=== PATIENT | male | born 1960 | race Caucasian/White ===

== ENCOUNTER 2016-12-11 23:22 | Emergency (ER) | payer OTHER ==
[2016-12-12 01:02] LABS: BASOPHILS 0.2 %; BASOPHILS ABSOLUTE 0.02 10/3/uL (0.0-0.16); EOSINOPHILS 0.3 %; EOSINOPHILS ABSOLUTE 0.03 10/3/uL (0.0-0.53); HEMATOCRIT 44.9 % (40.0-51.0); HEMOGLOBIN 15.9 g/dL (13.6-17.8); IMMATURE GRANULOCYTES 0.5 %; IMMATURE GRANULOCYTES ABSOLUTE 0.06 10/3/uL (0.0-0.11); LYMPHOCYTES 9.5 %; LYMPHOCYTES ABSOLUTE 1.13 10/3/uL (0.67-4.30); MEAN CORPUS HGB CONC 35.4 g/dL (32.0-36.0); MEAN CORPUSCULAR HEMOGLOB 31.7 pg (26.0-34.0); MEAN CORPUSCULAR VOLUME 89.6 fL (80-100); MEAN PLATELET VOLUME 9.9 fL (9.2-13.0); MONOCYTES 6.2 %; MONOCYTES ABSOLUTE 0.74 10/3/uL (0.21-1.20); NEUTROPHILS 83.3 %; NEUTROPHILS ABSOLUTE 9.87 10/3/uL (2.02-8.40); PLATELET COUNT 347 10/3/uL (150-400); RED CELL COUNT 5.01 10/6/uL (4.7-6.1); WHITE BLOOD CELLS 11.9 10/3/uL (4.5-10.5)
[2016-12-12 01:03] LABS: ER CBC TAT 0 Hrs 04 MinsNP; MANUAL DIFF NO %
[2016-12-12 01:20] LABS: A/G RATIO 1.1 (0.7-1.9); ALKALINE PHOSPHATASE 65 U/L (45-117); BUN (BLOOD UREA NITROGEN) 23 MG/DL (6-23); CALCIUM, SERUM 9.1 MG/DL (8.5-10.4); CHLORIDE, SERUM 104 MMOL/L (96-112); CO2 (CARBON DIOXIDE) 28 MMOL/L (24-34); CREATININE 1.27 MG/DL (0.70-1.30); GFR AFRICAN AMERICAN 73 ML/MIN (>=60); GFR NON AFRICAN AMERICAN 63 ML/MIN (>=60); GLOBULIN 3.5 G/DL (2.5-4.1); GLUCOSE, SERUM 122 MG/DL (60-99); POTASSIUM, SERUM 4.4 MMOL/L (3.5-5.3); SGOT(AST) 40 U/L (5-40); SGPT(ALT) 49 U/L (5-65); SODIUM, SERUM 137 MMOL/L (135-148); TOTAL BILIRUBIN 0.5 MG/DL (0-1.2); TOTAL PROTEIN 7.5 G/DL (6.0-8.5)
== END 2016-12-12 02:58 | disposition home or self-care (01) ==
LOC: ER 23:22
PROVIDERS: Specialist
DX: S80.12XA Contusion of left lower leg, initial encounter (principal); R10.12 Left upper quadrant pain; V28.9XXA Unspecified motorcycle rider injured in noncollision transport accident in traffic accident, initial encounter
CPT/HCPCS: 73590-LT; 74160; 80053; 85025; 96374; 99284; J1170; J2405; Q9967